=== PATIENT | female | born 1925 | race Caucasian/White ===

== ENCOUNTER 2017-07-02 08:33 | Inpatient (IN) | payer MEDICARE, BC ==
[~2017-07-02] VITALS: Ht 170.2 cm; Wt 85.7 kg
[2017-07-02 02:05] VITALS: BP 119/58
--- NOTE | 2017-07-02 08:40 | NUR ---
AAOX3, CAME TO ER C/O LLQ ABDOMINAL PAIN, NAUSEA SINCE MONDAY. DIAGNOSED WITH DIVERTICULITIS ON 06/14/2017. RESP IS EVEN AND UNLABORED WITH NAD NOTED. SKIN IS WARM AND DRY. PLACED ON MONITOR. WILL CONTINUOUSLY MONITOR THE PATIENT. DR KEE AT BS FOR EVAL.
[2017-07-02] MEDS ORDERED: IV NS 0.9% 500 ML BAG IV ONE (09:00)
[2017-07-02] MEDS ORDERED: DIATR MEGLU/DIATRIZOATE SODIUM 30 ML BOTTLE (GASTROGRAPHIN) ONE (09:11)
[2017-07-02 09:16] LABS: BASOPHILS % (AUTO) 0.1 % (0.0-2.0); EOSINOPHILS % (AUTO) 0.5 % (0.0-6.0); HEMATOCRIT 41 % (33-45); HEMOGLOBIN 13.4 g/dL (11.5-14.8); LYMPHOCYTES # (AUTO) 0.8 /CMM (0.8-4.8); LYMPHOCYTES % (AUTO) 7.3 % (20.0-44.0); MEAN CORPUSCULAR HEMOGLOBIN 30 PG (26.0-33.0); MEAN CORPUSCULAR HGB CONC 33 g/dl (31.0-36.0); MEAN CORPUSCULAR VOLUME 90 fL (82-100); MONOCYTES # (AUTO) 0.8 /CMM (0.1-1.30); MONOCYTES % (AUTO) 7.9 % (2.0-12.0); NEUTROPHILS # (AUTO) 8.7 /CMM (1.8-8.9); NEUTROPHILS % (AUTO) 84.2 % (43.0-81.0); PLATELET COUNT (AUTO) 187 /CMM (150-450); RDW COEFFICIENT OF VARIATION 14.5 (11.5-15.0); RED BLOOD CELL COUNT(AUTO) 4.53 MIL/uL (4.0-5.2); WHITE BLOOD COUNT (AUTO) 10.4 K/uL (4.3-11.0)
[2017-07-02 09:27] LABS: CALCIUM, SERUM 8.8 mg/dL (8.5-10.1); CARBON DIOXIDE 26 mmol/L (21-32); CHLORIDE 106 mmol/L (98-107); CREATININE 0.9 mg/dL (0.6-1.3); GLUCOSE 140 mg/dL (74-106); POTASSIUM 4.5 mmol/L (3.5-5.1); SODIUM SERUM 141 mmol/L (136-145); UREA NITROGEN, BLOOD 18 mg/dL (7-18)
[2017-07-02 09:33] LABS: ALANINE AMINOTRANSFERASE 21 U/L (12-78); ALBUMIN 3.5 g/dL (3.4-5.0); ALKALINE PHOSPHATASE 61 U/L (46-116); ASPARTATE AMINOTRANSFERASE 30 U/L (15-37); BILIRUBIN,DIRECT 0.1 mg/dL (0.0-0.2); BILIRUBIN,TOTAL 0.8 mg/dL (0.2-1.0); LIPASE 155 U/L (73-393); TOTAL PROTEIN, SERUM 7.1 g/dL (6.4-8.2)
--- NOTE | 2017-07-02 09:57 | NUR ---
PT BACK FROM CT SCAN
--- NOTE | 2017-07-02 10:18 | NUR ---
DR KEE AT BS FOR AN UPDATE AND RE-EVAL
--- NOTE | 2017-07-02 10:37 | NUR ---
PAGED EPIC -- DR LOPES IS ON-CALL.
[2017-07-02] MEDS ORDERED: METRONIDAZOLE 500MG/ NS 100ML 100 ML IV ONE (10:50)
[2017-07-02] MEDS ORDERED: LEVOFLOXACIN 750 MG /D5W 150ML 150 ML IV ONE (10:50)
[2017-07-02] MEDS: METRONIDAZOLE 500MG/ NS 100ML 500 MG in PREMIX 1 EA IV SCH ×2 (11:00→18:31)
[2017-07-02] MEDS ORDERED: LEVOFLOXACIN 500 MG /D5W 100ML 500 MG in PREMIX 1 EA IV SCH (11:00)
[2017-07-02] MEDS ORDERED: LEVOFLOXACIN 750 MG /D5W 150ML PIGGYBACK IV ONE (11:00)
[2017-07-02] MEDS ORDERED: FLAGYL/NS RTU 500 MG/100 ML PIGGYBACK IV ONE (11:00)
[2017-07-02] MEDS ORDERED: ACETAMINOPHEN 325 MG TABLET PO PRN (11:30)
[2017-07-02] MEDS ORDERED: Z GUARD REMEDY 2 OZ OINT TP PRN (11:30)
[2017-07-02] MEDS ORDERED: MORPHINE SULFATE INJ 2 MG/ML DISP.SYRIN IV PRN (11:30)
[2017-07-02] MEDS ORDERED: HYDROCODONE/APAP 5/325MG 1 EACH TABLET PO PRN (11:30)
[2017-07-02] MEDS ORDERED: MAGNESIUM HYDROXIDE 30 ML UDC PO PRN (11:30)
[2017-07-02] MEDS ORDERED: ZOLPIDEM TARTRATE 5 MG TABLET PO PRN (11:30)
[2017-07-02] MEDS ORDERED: MAG HYDROX/AL HYDROX/SIMETH 30 ML UDC PO PRN (11:30)
[2017-07-02] MEDS ORDERED: ONDANSETRON HCL/PF 4 MG/2 ML VIAL IVP PRN (11:30)
--- NOTE | 2017-07-02 12:16 | NUR ---
GAVE REPORT TO RACHEL RAMIREZ MEDSUR DR LOPES DX DIVERTICULITIS
--- NOTE | 2017-07-02 13:00 | NUR ---
RN NOTES RECEIVED PT FROM ER. PT IS STABLE A/OX4. NO S/S OF DISTRESS OR SOB. PT HAS NO C/O PAIN AT THIS TIME, HOWEVER NOTED THAT SHE HAD ABD PAIN EARLIER IN THE ER. FLAGYL AND LEVAQUIN GIVEN IN ER. IV ACCESS LOCATED ON RIGHT FA, 20G. BELONGINGS LIST SIGNED. SAFETY MEASURES IN PLACE, WILL CONTINUE TO MONITOR.
--- NOTE | 2017-07-02 14:00 | NUR ---
RN NOTES 1100 FLAGYL GIVEN BY ER.
[2017-07-02] MEDS: IV NS 0.9% 1,000 ML IV PRN (14:14)
[2017-07-02 16:00] VITALS: BP 116/53
--- NOTE | 2017-07-02 18:45 | NUR ---
RN CLOSING NOTES PT IS IN BED RESTING. A/OX4. NO S/S OF DISTRESS OR SOB. NO C/O PAIN AT THIS TIME. ALL PT NEEDS ANTICIPATED AND MET. SAFETY MEASURES IN PLACE, CALL LIGHT WITHIN REACH. WILL ENDORSE TO [employer] OPERATOR FOR JOSE RAFAEL.
--- NOTE | 2017-07-02 19:35 | NUR ---
RN OPENING NOTES RECEIVED REPORT FROM SHAISTA RNDELORES. FOUND Pt AWAKE, RESTING IN BED. NO S/S OF ACUTE DISTRESS OR SOB NOTED. Pt IS A/OX4, VERBAL, ABLE TO MAKE NEEDS KNOWN. NO C/O PAIN AT THIS TIME. Pt IS CONT, WITH BRP. AMB WITH ASSIST/CANE. SKIN INTACT. SOFT DIET. IV ACCESS ON RHAND #20G IVF NS @75ML/HR INFUSING WELL. LT CHEST WALL PORT FROM PREVIOUS CHEMO. SAFETY MEASURES IN PLACE. BED LOW, LOCKED, HOB ELEVATED, SIDE RAILS UP, CALL LIGHT AND BEDSIDE TABLE WITHIN REACH. WILL CONTINUE TO MONITOR Pt THROUGHOUT THE NIGHT FOR SAFETY.
[2017-07-02 20:20] VITALS: BP 136/64
[2017-07-02 22:00] VITALS: BP 136/64
[2017-07-03] MEDS: METRONIDAZOLE 500MG/ NS 100ML 500 MG in PREMIX 1 EA IV SCH ×2 (02:54→11:07)
[2017-07-03] MEDS: IV NS 0.9% 1,000 ML IV PRN (06:06)
--- NOTE | 2017-07-03 06:40 | NUR ---
RN CLOSING NOTES NO SIGNIFICANT CHANGES NOTED DURING THE NIGHT. Pt REMAINS STABLE. NO S/S OF ACUTE DISTRESS OR SOB NOTED DURING THE SHIFT. ALL NEEDS MET AND ATTENDED TO. SAFETY MEASURES IN PLACE. WILL ENDORSE TO DAYSHIFT RN FOR Pt's JOSE RAFAEL.
[2017-07-03 06:45] LABS: BASOPHILS % (AUTO) 0.4 % (0.0-2.0); EOSINOPHILS # (AUTO) 0.2 /CMM (0.0-0.7); HEMATOCRIT 37 % (33-45); HEMOGLOBIN 12.3 g/dL (11.5-14.8); LYMPHOCYTES # (AUTO) 1.1 /CMM (0.8-4.8); LYMPHOCYTES % (AUTO) 13.8 % (20.0-44.0); MEAN CORPUSCULAR HEMOGLOBIN 30 PG (26.0-33.0); MEAN CORPUSCULAR HGB CONC 34 g/dl (31.0-36.0); MEAN CORPUSCULAR VOLUME 90 fL (82-100); MONOCYTES # (AUTO) 0.8 /CMM (0.1-1.30); MONOCYTES % (AUTO) 10.3 % (2.0-12.0); NEUTROPHILS % (AUTO) 73.5 % (43.0-81.0); PLATELET COUNT (AUTO) 170 /CMM (150-450); RDW COEFFICIENT OF VARIATION 14.6 (11.5-15.0); RED BLOOD CELL COUNT(AUTO) 4.06 MIL/uL (4.0-5.2); WHITE BLOOD COUNT (AUTO) 8.2 K/uL (4.3-11.0)
[2017-07-03 07:05] LABS: CALCIUM, SERUM 8.1 mg/dL (8.5-10.1); CARBON DIOXIDE 25 mmol/L (21-32); CHLORIDE 110 mmol/L (98-107); CREATININE 0.8 mg/dL (0.6-1.3); GLUCOSE 108 mg/dL (74-106); MAGNESIUM 1.8 mg/dL (1.8-2.4); PHOSPHORUS 3.1 mg/dL (2.5-4.9); POTASSIUM 3.7 mmol/L (3.5-5.1); SODIUM SERUM 145 mmol/L (136-145); UREA NITROGEN, BLOOD 12 mg/dL (7-18)
--- NOTE | 2017-07-03 07:26 | NUR ---
MS RN: INITIAL NOTE RECEIVED PT A/OX4/ ON ROOM AIR SATING AT 96%. AMBULATES WITH CANE AND ASSISTANCE. SKIN INTACT. ON SOFT DIET. R HAND #20 RUNNING NS AT 75ML/HR. IV SITE CLEAR, AND PATENT. NO DISTRESS NOTED. NO SOB NOTED. NO PAIN NOTED. RESTING COMFORTABLY IN BED. CALL LIGHT WITHIN REACH.
[2017-07-03] MEDS ORDERED: PANTOPRAZOLE 40 MG TABLET.DR PO SCH (07:30)
[2017-07-03 08:00] VITALS: BP 101/58
[2017-07-03] MEDS ORDERED: LEVO500T15 PO (10:19)
[2017-07-03] MEDS ORDERED: METR250T PO (10:19)
--- NOTE | 2017-07-03 13:48 | NUR ---
RN: DISCHARGE NOTE PT A/OX4. D/C HOME. TOOK ALL MEDICATIONS ON TIME. NO ADVERSE REACTIONS NOTED. NO PAIN NOTED. NO SOB NOTED. VS STABLE UPON D/C. IV ON RIGHT HAND D/C. NO BLEEDING NOTED. NO INFILTRATION NOTED. ALL DISCHARGE ORDERS AND PAPERS SIGNED BY DAUGHTER ZAHIDA. ALL INFORMATION EDUCATION PROVIDED TO BOTH PATIENT AND DAUGHTER. SKIN INTACT. NEW PRESCRIPTION ORDERS GIVEN TO PATIENT. ALL VALUABLES ACCOUNTED FOR. LEFT HOME VIA PRIVATE CAR WITH LYUDMILA DOVEA.
[2017-07-04] MEDS ORDERED: LEVOFLOXACIN 750 MG /D5W 150ML 750 MG in PREMIX 1 EA IV SCH (12:00)
== END 2017-07-03 13:45 | disposition home or self-care (01) | DRG 392 ==
LOC: ER 08:34 → MED 12:23
PROVIDERS: ADMIT Internal Medicine; ATTEND Internal Medicine
DX: K57.32 Diverticulitis of large intestine without perforation or abscess without bleeding (principal); Z85.71 Personal history of Hodgkin lymphoma; K57.90 Diverticulosis of intestine, part unspecified, without perforation or abscess without bleeding
CPT/HCPCS: 36415; 80048-TC; 80076-TC; 83690-TC; 83735-TC; 84100-TC; 85025-TC; 87081-TC; A4216; A4606; J1956; J3490; J7030; J7040; Q9963; Z7610